=== PATIENT | male | born 1965 | race Two or more races ===

== ENCOUNTER 2017-02-20 13:46 | Emergency (ER) | payer SELFPAY ==
[~2017-02-20] VITALS: Ht 175.3 cm; Wt 86.0 kg
[2017-02-20 14:36] VITALS: BP 139/85
[2017-02-20] MEDS ORDERED: KETOROLAC 60MG/2ML VIAL IM ONE (18:45)
== END 2017-02-20 22:12 | disposition home or self-care (01) ==
LOC: ER 19:43
DX: S93.602A Unspecified sprain of left foot, initial encounter (principal); W22.09XA Striking against other stationary object, initial encounter; Y93.89 Activity, other specified; Y92.89 Other specified places as the place of occurrence of the external cause; F17.210 Nicotine dependence, cigarettes, uncomplicated
CPT/HCPCS: 73630; 96372; 99284; J1885